=== PATIENT | male | born 1960 | race African-American/Black ===

== ENCOUNTER → 2017-06-02 | Outpatient (CLI) | payer OTHER ==
--- NOTE | 2017-06-02 15:10 | RAD ---
Exam: Left foot radiograph 06/02/2017 Indication: Left foot swelling Comparison: None available Technique: 2 views of the left foot are provided. Findings: There is no acute fracture or dislocation. Mild joint space narrowing of the interphalangeal joints. No soft tissue swelling. No osseous erosion or soft tissue gas. Bone mineralization is within normal limits. Impression: Mild osteoarthrosis of the left foot. No acute fracture or dislocation.
--- NOTE | 2017-06-02 15:11 | RAD ---
Left knee radiograph 06/02/2017 Indication: Left knee locks after sitting for too long. Comparison: None available Technique: 2 views left knee are provided. Findings: There is no acute fracture or dislocation. Joint spaces are maintained. Bone mineralization is within normal limits. There is no knee joint effusion. No significant soft tissue swelling. Impression: No acute fracture or dislocation.
== END | disposition home or self-care (01) ==
LOC: RAD 09:36
PROVIDERS: ATTEND Surgery
DX: M17.12 Unilateral primary osteoarthritis, left knee (principal); M79.89 Other specified soft tissue disorders
CPT/HCPCS: 73560; 73620